=== PATIENT | male | born 1970 | race Caucasian/White ===

== ENCOUNTER 2021-02-13 20:20 | Emergency (ER) | payer BC ==
[2021-02-13] MEDS: Cephalexin 250 MG Cap PO ONE ×2 (20:55→21:27)
[2021-02-13] MEDS: Diphtheria,Pertussis(Acell),Tetanus Vaccine 0.5 ML Syringe IM ONE (20:56)
[2021-02-13] MEDS: Lidocaine 1% 20 ML MDV INJECT ONE (21:02)
[2021-02-13] MEDS: Lidocaine 1% 20 ML MDV ONE (21:02)
[2021-02-13] MEDS: Acetaminophen/HYDROcodone 325-5 MG Tab PO ONE ×2 (21:17→21:27)
--- NOTE | 2021-02-13 21:26 | EDM.PDOC ---
ED HPI GENERAL MEDICAL PROBLEM - General Chief Complaint: Laceration Stated Complaint: HAND INJURY Time Seen by Provider: 02/13/21 20:30 Source of Information: Reports: Patient History Limitations: Reports: No Limitations - History of Present Illness INITIAL COMMENTS - FREE TEXT/NARRATIVE: Presents with for finger laceration description arrival. 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 Tetanus is not up-to-date. Hemostasis achieved prior to arrival with direct pressure. 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 Pain is moderate worse with movement. The nail is fully lacerated through the middle of the nail. The finger is intact with laceration, there is no loss of avulsion of the finger. - Related Data Allergies Allergy/AdvReac Type Severity Reaction Status Date / Time No Known Drug Allergies Allergy Cannot Verified 02/13/21 20:21 Remember ED ROS GENERAL - Review of Systems Review Of Systems: Comprehensive ROS is negative, except as noted in HPI. Skin: Reports: Wound ED EXAM, SKIN/RASH Exam: See Below Exam Limited By: No Limitations General Appearance: Alert, No Apparent Distress Ears: Normal External Exam, Normal Canal, Hearing Grossly Normal, Normal TMs Nose: Normal Inspection, Normal Mucosa, No Blood Throat/Mouth: Normal Inspection, Normal Lips, Normal Teeth, Normal Gums, Normal Oropharynx, Normal Voice, No Airway Compromise Head: Atraumatic, Normocephalic Neck: Normal Inspection, Supple, Non-Tender, Full Range of Motion Respiratory/Chest: No Respiratory Distress, Lungs Clear, Normal Breath Sounds, No Accessory Muscle Use, Chest Non-Tender Cardiovascular: Normal Peripheral Pulses, Regular Rate, Rhythm, No Edema, No Gallop, No JVD, No Murmur, No Rub Peripheral Pulses: 2+: Radial (R) GI/Abdominal: Normal Bowel Sounds, Soft, Non-Tender, No Organomegaly, No Distention, No Abnormal Bruit, No Mass (Male) Exam: No Hernia, Normal Inspection, Normal Prostate, Circumcised Rectal (Males) Exam: Normal Exam, Normal Rectal Tone, Prostate Normal Back Exam: Normal Inspection, Full Range of Motion, NT Extremities: Normal Inspection, Normal Range of Motion, Non-Tender, No Pedal Edema, Normal Capillary Refill Neurological: Alert, Oriented, CN II-XII Intact, Normal Cognition, Normal Gait, Normal Reflexes, No Motor/Sensory Deficits Psychiatric: Normal Affect, Normal Mood Skin: Warm, Dry, Wound/Incision (3.5 linear laceration on the medial aspect of his distal right little finger. Laceration starts at the PIP joint on the medial aspect of the pinky and goes up through the nail at the distal tip.) Lymphatic: No Adenopathy ED SKIN PROCEDURES - Laceration/Wound Repair Right Distal Digit - 5th (Baby) Appearance: Subcutaneous, Linear, Mildly Contaminated Distal NVT: Neuro & Vascular Intact Anesthetic Type: Digital Local Anesthesia - Lidocaine (Xylocaine): 1% Plain Local Anesthetic Volume: 5cc Skin Prep: Providone-Iodine (Betadine), Saline, Sterile Drape Saline Irrigation (cc's): 1,000 Exploration/Debridement/Repair: Wound Explored, In a Bloodless Field, Explored to Base, No Foreign Material Found, Wound Margins Revised Closed with: Sutures Lac/Wound length In cm: 3.5 Suture Size: 3-0 # of Sutures: 5 Suture Type: Nylon Suture Size: 4-0 Drain Placement: No Sterile Dressing Applied: Nurse Tetanus Status Addressed: Yes Complications: No Progress/Comments: I applied 3 Steri-Strips to secure the fingernail laceration to hold it which approximated really nicely. The wound approximated nicely with the sutures and Steri-Stripped. No bleeding patient tolerated well. Course - Vital Signs Last Recorded V/S: Last Vital Signs Temp 97.9 F 02/13/21 20:25 Pulse 82 02/13/21 20:25 Resp 20 02/13/21 20:25 BP 122/79 02/13/21 20:25 Pulse Ox 96 02/13/21 20:25 - Orders/Labs/Meds Orders: Active Orders 24 hr Category Date Time Status Vaccines to be Administered [RC] PER UNIT ROUTINE Care 02/13/21 20:51 Active Fingers Fifth Digit Rt F9 [CR] Stat Exams 02/13/21 21:08 Ordered Meds: Medications Discontinued Medications Generic Name Dose Route Start Last Admin Trade Name Frepaulo PRN Reason Stop Dose Admin Hydrocodone Bitart/Acetaminophen 1 tab 02/13/21 21:06 02/13/21 21:17 Acetaminophen/Hydrocodone 325-5 Mg Tab PO 02/13/21 21:07 1 tab ONETIME ONE Administration Hydrocodone Bitart/Acetaminophen 3 tab 02/13/21 21:09 02/13/21 21:27 Acetaminophen/Hydrocodone 325-5 Mg Tab PO 02/13/21 21:10 Not Given ONETIME ONE Cephalexin 500 mg 02/13/21 20:48 02/13/21 20:55 Cephalexin 250 Mg Cap PO 02/13/21 20:49 500 mg ONETIME ONE Administration Cephalexin 2,000 mg 02/13/21 21:03 02/13/21 21:27 Cephalexin 250 Mg Cap PO 02/13/21 21:04 Not Given ONETIME ONE Diphtheria/Tetanus/Acell Pertussis 0.5 ml 02/13/21 20:51 02/13/21 20:56 Diphtheria,Pertussis(Acell),Tetanus Vaccine 0.5 Ml Syringe IM 02/13/21 20:52 0.5 ml .ONCE ONE Administration Lidocaine HCl Confirm 02/13/21 20:34 02/13/21 21:02 Lidocaine 1% 20 Ml Mdv Administered 02/13/21 20:35 Not Given Dose 20 ml .ROUTE .STK-MED ONE Lidocaine HCl 20 ml 02/13/21 20:51 02/13/21 21:02 Lidocaine 1% 20 Ml Mdv INJECT 02/13/21 20:52 20 ml ONETIME ONE Administration - Re-Assessments/Exams Free Text/Narrative Re-Assessment/Exam: 02/13/21 21:26 Laceration repaired patient has a very small tuft fracture as there is a small cortical piece disrupted. I spent extra time thoroughly cleaning the hand with Betadine avoid getting the Betadine into the wound and copiously irrigating the site with clean tap water using a pressure splash cap. Tetanus was updated as it was out of date. Patient was given prophylactic antibiotics Keflex 500 mg first dose was given tonight was sent him home enough to get him by [facility] pharmacy on Monday. He also was given pain medication 3 tablets take as needed as he may have some pain with this. Patient understands and return precautions to the ER for signs symptoms of infection. Departure - Departure Time of Disposition: 21:21 Disposition: Home, Self-Care 01 Condition: Good Clinical Impression: Need for Tdap vaccination Laceration of finger Qualifiers: Encounter type: initial encounter Finger: little finger Damage to nail status: with damage Foreign body presence: without foreign body Laterality: right Qualified Code(s): S61.316A - Laceration without foreign body of right little finger with damage to nail, initial encounter - Discharge Information *PRESCRIPTION DRUG MONITORING PROGRAM REVIEWED*: No *COPY OF PRESCRIPTION DRUG MONITORING REPORT IN PATIENT ZOFIA: No Instructions: Laceration Care, Adult Referrals: Joe Chapa, [employer] BANK BUSINESS MANAGER [Primary Care Provider] - Forms: ED Department Discharge Additional Instructions: return to the clinic in 12 days for suture removal.take keflex 500 3 times a day for one week.apply OTC antibiotic ointment to the site, take hydrocodone 5/325 mgevery 8 hours as needed patient was given 3 doses to take at home. Monitor for signs symptoms of infection redness swelling drainage increased pain. Have low threshold to return her back for recheck of finger. Keep it clean and dry and please avoid contamination. Sepsis Event Note (ED) - Evaluation Sepsis Screening Result: No Definite Risk - Focused Exam Vital Signs: Vital Signs Temp Pulse Resp BP Pulse Ox 02/13/21 20:25 97.9 F 82 20 122/79 96 - My Orders Last 24 Hours: My Active Orders 02/13/21 20:51 Vaccines to be Administered [RC] PER UNIT ROUTINE 02/13/21 21:08 Fingers Fifth Digit Rt F9 [CR] Stat - Assessment/Plan Last 24 Hours: My Active Orders 02/13/21 20:51 Vaccines to be Administered [RC] PER UNIT ROUTINE 02/13/21 21:08 Fingers Fifth Digit Rt F9 [CR] Stat
[2021-02-14] MEDS ORDERED: diphenhydrAMINE 25 MG Cap PO ONE (01:40)
--- NOTE | 2021-02-14 10:12 | CR ---
[id number] RAD/RAD Fingers Right EXAM: RAD Fingers Right CLINICAL DATA: TRAUMA COMPARISON: No previous similar exam is available. FINDINGS: A compound ungual tuft injury of the distal right fifth phalanx is seen with tiny radiopaque foreign bodies in the soft tissues. IMPRESSION: COMPOUND NONDISPLACED DISTAL RIGHT FIFTH PHALANGEAL UNGUAL TUFT INJURY Damien Paige MD 02/14/21 1011 Thank you for allowing us to participate in the care of your patient.
== END 2021-02-13 21:40 | disposition home or self-care (01) ==
LOC: KA.ED 20:20
DX: S61.316A Laceration without foreign body of right little finger with damage to nail, initial encounter (principal); Z23 Encounter for immunization; W26.8XXA Contact with other sharp object(s), not elsewhere classified, initial encounter; Y99.0 Civilian activity done for income or pay
CPT/HCPCS: 12002; 73140-F9; 90471; 90715; 99283; 99283-25; A9270-GY